=== PATIENT | male | born 1985 | race Hispanic/Latino ===

== ENCOUNTER 2023-08-01 02:22 | Emergency (ER) | payer BC, OTHER ==
[2023-08-01] MEDS ORDERED: Ibuprofen 200 MG TAB ONE (02:46)
== END 2023-08-01 03:33 | disposition home or self-care (01) ==
LOC: ERS 02:22
DX: R29.898 Other symptoms and signs involving the musculoskeletal system (principal)
CPT/HCPCS: 72040; 99284